=== PATIENT | female | born 1965 | race Two or more races ===

== ENCOUNTER 2024-04-04 15:05 | Emergency (ER) | payer OTHER ==
[~2024-04-04] VITALS: Ht 165.1 cm; Wt 74.8 kg
[2024-04-04 15:58] LABS: BASOPHILS % (AUTO) 0.5 % (0.0-2.0); EOSINOPHILS # (AUTO) 0.1 K/uL (0.0-0.7); MONOCYTES # (AUTO) 0.7 K/uL (0.1-1.30)
[2024-04-04 16:03] LABS: EOSINOPHILS % (AUTO) 0.8 % (0.0-6.0); HEMATOCRIT 41 % (33-45); LYMPHOCYTES % (AUTO) 29.2 % (20.0-44.0); MEAN CORPUSCULAR HEMOGLOBIN 33 PG (26.0-33.0); MEAN CORPUSCULAR HGB CONC 35 g/dl (31.0-36.0); MEAN CORPUSCULAR VOLUME 94 fL (82-100); NEUTROPHILS # (AUTO) 4.1 K/uL (1.8-8.9); NEUTROPHILS % (AUTO) 59.5 % (43.0-81.0); PLATELET COUNT (AUTO) 265 K/uL (150-450); RED BLOOD CELL COUNT(AUTO) 4.31 MIL/uL (4.0-5.2); RED CELL DISTRIBUTION WIDTH 12.1 % (11.5-15.0)
[2024-04-04] MEDS: IV NS 0.9% 1,000 ML BAG IV ONE (16:10)
[2024-04-04 16:20] LABS: CREATININE 1.1 mg/dL (0.6-1.3); MAGNESIUM 2.4 mg/dL (1.8-2.4); PHOSPHORUS 3.4 mg/dL (2.5-4.9); POTASSIUM 4.1 mmol/L (3.5-5.1)
[2024-04-04 17:25] LABS: T4 (THYROXINE) 5.7 ug/dL (4.7-13.3); THYROID STIMULATING HORMONE 0.51 uIU/mL (0.358-3.74)
[2024-04-04 19:14] VITALS: BP 164/88; TEMP 98.2; O2SAT 98
== END 2024-04-04 19:14 | disposition home or self-care (01) ==
LOC: ER 15:29
DX: S06.0XAA Concussion with loss of consciousness status unknown, initial encounter (principal); G89.29 Other chronic pain; E06.3 Autoimmune thyroiditis; I10 Essential (primary) hypertension; M47.819 Spondylosis without myelopathy or radiculopathy, site unspecified; M50.30 Other cervical disc degeneration, unspecified cervical region; W18.39XA Other fall on same level, initial encounter; Y93.89 Activity, other specified; Y92.89 Other specified places as the place of occurrence of the external cause; Y99.8 Other external cause status
CPT/HCPCS: 99285; 72125; 96360; 93005; 70450; 70486; 85025; 80048; 83735; 84100; 84436; 36415; 84443; 84481; 84480; J7030